=== PATIENT | female | born 1995 | race Caucasian/White ===

== ENCOUNTER 2022-01-29 00:29 | Emergency (ER) | payer BC, SELFPAY ==
--- NOTE | 2022-01-29 01:15 | ED_ITS ---
HPI - Wound/Laceration General Chief Complaint: Wound/Laceration Stated Complaint: DOG BITE TO FACE Time Seen by Provider: 01/29/22 00:39 Source: patient Mode of arrival: ambulatory Limitations: no limitations History of Present Illness HPI narrative: This is a 26-year-old female that presents to the emergency department for lacerations to the face sustained just prior to arrival. Reports her dog bit her. Dog is up-to-date on vaccinations. She is unsure of her last tetanus vaccine. Reports lacerations to the nose and under the left eye. Denies difficulty breathing or visual changes. Related Data Allergies Allergy/AdvReac Type Severity Reaction Status Date / Time latex Allergy Hives Verified 01/29/22 00:48 bharat Allergy Hives Verified 01/29/22 00:48 Review of Systems Review of Systems: CONSTITUTIONAL: Denies fever ENT: Reports laceration All systems reviewed & are unremarkable except as noted in HPI and below PMFSH Past Medical History Medical History (Updated 01/29/22 @ 01:19 by Tiffanie Harvey PA-C) No active medical problems Social History Social History (Updated 01/29/22 @ 01:16 by Tiffanie Harvey PA-C) Substance use: never Exam Narrative: GENERAL: Well-appearing, well-nourished, and in no acute distress. HEAD: Normocephalic, atraumatic. EYES: PERRLA and EOMI. ENT: Left nasal ala with 1.5 cm linear laceration through and through. Tip of the nose with 2 cm area of skin avulsion. Mucous membranes moist. 2 cm linear laceration in the subcutaneous tissue below the left eye NECK: Supple. No adenopathy or masses. CHEST: No respiratory distress. HEART: Regular rate EXTREMITIES: Normal range of motion. No edema. SKIN: Warm, dry, no rash. NEURO: No focal deficits. Alert and oriented x3. PSYCH: Normal mood and affect Course Consultations Consultation #1: Spoke with Dr. Bucio, ENT at [place], about patient and workup who agrees with transfer to the ER for further management Date: 01/29/22 Time: 01:10 Consultation #2: Spoke with Dr. Woodson, [facility], about patient and workup who accepts transfer Date: 01/29/22 Time: 01:10 MDM - Wound/Laceration MDM Narrative Medical decision making narrative: Patient presents to the emergency department for complex lacerations to the face sustained by dog bite. Lacerations were irrigated. Patient updated on tetanus. Given dose of Augmentin. We do not have ENT or plastics occasional caregiver tonight. So I did reach out to ENT at [place] per patient's request. Spoke with Dr. Bucio, ENT at [place], about patient and workup who agrees with transfer to the ER for further management. Spoke with Dr. Woodson, [place] [facility], about patient and workup who accepts transfer Critical Care Time Critical Care Time Critical Care Time: No Discharge Plan Discharge Clinical Impression: Complex laceration of nose Qualifiers: Encounter type: initial encounter Qualified Code(s): S01.21XA - Laceration without foreign body of nose, initial encounter Patient Disposition: Acute Care Hospital Condition: Stable Additional Instructions: Report directly to [place] ER for further management of your lacerations Follow-up/Referrals: Ander,SHERYL Gong [Primary Care Provider] -
[2022-01-29] MEDS: AMOXICILLIN/CLAVULANATE K 875-125 MG TAB 1 TABLET PO (01:16)
[2022-01-29] MEDS: TETANUS,DIPHTHERIA,AC PERTUSSIS ADULT (0.5 ML) BOOSTRIX IM (01:18)
--- NOTE | 2022-01-29 01:22 | PC.NURSE ---
Pt to be transferred to [facility]. Ambulance transportation offered and declined.
[2022-01-29 01:38] VITALS: BP 117/75; PULSE 78; RESP 16; O2SAT 99
== END 2022-01-29 01:40 | disposition short-term general hospital (02) ==
PROVIDERS: Emergency Provider Emergency Medicine; PCP Physician Assistant
DX: S01.21XA Laceration without foreign body of nose, initial encounter (principal); Z23 Encounter for immunization; W54.0XXA Bitten by dog, initial encounter
CPT/HCPCS: 90471; 90715; 99283; A9270